=== PATIENT | male | born 1965 | race Caucasian/White ===

== ENCOUNTER 2017-05-27 16:27 | Emergency (ER) | payer OTHER ==
--- NOTE | ~2017-05-27 | CR211 ---
[facility] A Service of [facility] RADIOLOGY TEXT RESULTS PATIENT: PRATEEK LEVIN LOCATION: SED : 67 UNIT #: [id number] AGE: [address]: JUAN CARLOS SHAW SEX: M ORDER DR: [id number] [address] [address] [id number] MR#: [id number] Acc #: [id number] NAME: PRATEEK LEVIN : 1965 SEX: M STUDY DATE/TIME: 05/27/2017 17:26 UNIT: SED ROOM: STUDY DESCRIPTION: CR Ribs Uni 2 View W PA Ch Rt Attending Physician: Juan Carlos Shaw Aprn Ordering Physician: Juan Carlos Shaw Aprn Primary Care Physician: Adonis Reyes M.D. MEDICAL IMAGING REPORT This report is preliminary unless electronic signature is present. EXAM Frontal view of the chest and right-sided rib views, dated 05/27/2017. COMPARISON None. HISTORY Right upper anterior rib pain for 2 days post fall. FINDINGS Frontal view of the chest was obtained. Lungs are slightly hyperinflated suggestive of emphysematous changes. No patchy dense consolidation, pleural effusion or pneumothorax. The heart and mediastinum are within normal limits. There are 3 right-sided rib views. They demonstrate expected bony alignment, architecture and mineralization. No acute displaced fracture or destructive bony mass is seen. IMPRESSION 1. Hyperinflated lungs are noted suggestive of emphysematous changes. 2. No acute displaced fracture or destructive bony mass is seen in the right sided ribs. Dictated by... Mariana Jorge M.D. THIS IS AN ELECTRONICALLY VERIFIED REPORT Mariana Jorge M.D. at 05/28/2017 1:16 PM CPR/jt TD: 05/27/2017 20:51 JOB #: [id number] [facility] A Service of [facility] RADIOLOGY TEXT RESULTS PATIENT: PRATEEK LEVIN LOCATION: SED : 67 UNIT #: [id number] AGE: [address]: JUAN CARLOS SHAW SEX: M ORDER DR: MEDICAL IMAGING REPORT Page 1 of 1
[2017-05-27] MEDS ORDERED: NO MEDICATIONS (16:44)
== END 2017-05-27 19:01 | disposition home or self-care (01) ==
LOC: SED 16:27
DX: S20.219A Contusion of unspecified front wall of thorax, initial encounter (principal); F17.210 Nicotine dependence, cigarettes, uncomplicated; W01.0XXA Fall on same level from slipping, tripping and stumbling without subsequent striking against object, initial encounter; Y92.410 Unspecified street and highway as the place of occurrence of the external cause
CPT/HCPCS: 71101; 99285